=== PATIENT | male | born 1960 | race Caucasian/White ===

== ENCOUNTER 2022-08-08 15:03 | Emergency (ER) | payer OTHER ==
[~2022-08-08 15:03] MED LIST: Iopamidol-370 76% 500 ML 1 ML ONE
[2022-08-08 15:43] LABS: Digoxin Less than 0.15 ng/mL (0.8-2.0)
[2022-08-08 15:45] LABS: ALT (SGPT) 34 U/L (8-55); AST (SGOT) 28 U/L (5-34); Alkaline Phosphatase 85 U/L (40-110); Anion Gap 13 mmol/L (10-20); BUN (Urea Nitrogen) 21 mg/dL (8.4-25.7); Bilirubin, Total 1.1 mg/dL (0.2-1.2); Calc. Creatinine Clearance 0 mL/min (70-130); Calcium 9.2 mg/dL (7.8-10.44); Carbon Dioxide 29 mmol/L (22-29); Chloride 102 mmol/L (98-107); Estimated GFR 60; Glucose 107 mg/dL (70-105); Lipase 54 U/L (8-78); Magnesium 2.3 mg/dL (1.6-2.6); Potassium 4.4 mmol/L (3.5-5.1); Sodium 140 mmol/L (136-145)
[2022-08-08] MEDS ORDERED: Furosemide 40 MG/4 ML VIAL ONE (15:59)
[2022-08-08 16:06] LABS: CKMB 2.2 ng/mL (0-6.6)
[2022-08-08 16:33] LABS: INR-International Normal Ratio 1.1; PTT 28.7 sec (22.9-36.1); Prothrombin Time 14.3 sec (12.0-14.7)
[2022-08-08 16:34] LABS: D-Dimer Test 1.8 *mcg/mL (0.27-0.43)
[2022-08-08] MEDS ORDERED: Aspirin Chewable 81 MG TAB ONE (17:49)
[2022-08-08 19:33] LABS: CKMB 1.7 ng/mL (0-6.6)
== END 2022-08-08 20:58 | disposition left against medical advice (07) ==
LOC: ERS 15:03
DX: I21.4 Non-ST elevation (NSTEMI) myocardial infarction (principal); I48.91 Unspecified atrial fibrillation; I11.0 Hypertensive heart disease with heart failure; I50.9 Heart failure, unspecified; F17.210 Nicotine dependence, cigarettes, uncomplicated
CPT/HCPCS: 36415; 71045; 71275; 80053; 80162; 82553; 83690; 83735; 83880; 84443; 84484; 85379; 85610; 85730; 93005; 93970; 96374; 96375; 96376; J1940; Q9967